=== PATIENT | female | born 1985 | race Caucasian/White ===

== ENCOUNTER 2021-03-11 14:43 | Inpatient (IN) ==
[2021-03-11 14:52] VITALS: BMI 21.6
--- NOTE | 2021-03-11 15:52 | DR.GENAD ---
HPI Time Seen Time Seen by Provider: 03/11/21 15:24 PCP Primary Care Physician: ION LANIER HPI Comment HPI Comment: Patient presents to ED due to abnormal labs. Saw her PCP a few days ago and was called today with a Hgb of 4.2 and instructions to come to the ED. Notes that she has been tired lately. Has had similar sx in the past and saw Heme-Oncology, but no diagnosis given. Denies any heavy menstrual bleeding, although she notes thst cycles are irregular nowadays. No GI bleeding. Complaint/Symptoms Chief Complaint:: PT HAD FOLLOW UP WITH PCP YESTERDAY AND GOT A CALL TODAY SAYING THAT HER HGB IS 4.2. DENIES BLEEDING. PT C/O FATIGUE, BILATERAL LOWER EXTREMITY SWELLING AND DIZZINESS. Self Treatment fo Chief Complaint: PT HAS SEEN HEMATOLOGY IN THE PAST FOR THIS ISSUE Source History Provided: Patient Mode of Arrival Mode of Arrival: Ambulatory Timing Onset of Chief Complaint: 03/11/21 PMH PMH Past Medical History: Yes Past Medical History: Anemia Past Surgical History: Yes Surgical History: No History Past Surgical History Comment: WISDOM TEETH REMOVED Family History History of Family Medical Conditions: Yes Family Medical History: [facility], Coronary Artery Disease and Hypertension Family Medical History Comment: LEUKEMIA Social History Does patient currently use any type of tobacco product: Yes Have you used tobacco products in the last 12 months: Yes Type of Tobacco Use: Cigarettes Does any household member use tobacco: No Alcohol Use: None Do you use any recreational Drugs:: No Lives With: Family Lives Where: Home Infectious screening In the last 2 months have you had wt loss of >10#?: NO Have you had fever, night sweats or hemotysis?: No Have you traveled outside the country in the last 6 months?: No Isolation: Standard ROS Review of Systems Constitutional: See HPI and Fatigue Hematologic/Lymphatic: See HPI and Anemia All Other Systems: Reviewed and Negative PE Vital Signs Vitals: Temperature 97.9 F Pulse Rate 101 Respiratory Rate 18 Blood Pressure [Left Arm] 121/57 Blood Pressure 121/58 O2 Sat by Pulse Oximetry 100 General Limitations: No Limitations General Appearance: Alert and In No Apparent Distress Head Head Exam: Normal Inspection, Atraumatic and Normocephalic Eyes Eye exam: Normal Appearance and Other (pale conjunctiva) ENT ENT Exam: Normal Exam Neck Neck Exam: Normal Inspection and Trachea Midline Chest Chest Inspection: Normal Inspection and Symmetric Chest Wall Rise Respiratory Respiratory Exam: Normal Lung Sounds Bilat Respiratory Exam: Bilateral: Clear to Auscultation Cardiovascular Cardiovascular Exam: Regular Rate, Normal Rhythm and Normal Heart Sounds Abdominal Exam Abdominal Exam: Normal Inspection, Normal Bowel Sounds and Soft Extremities Extremities Exam: Normal Inspection COURSE Consultation Consultation Comments: Spoke with Dr. Jackson who accepts patient for admission. ROR Labs Reviewed Laboratory Results Reviewed?: Yes Result Diagrams: 03/11/21 15:40 Laboratory: WBC 8.3 X10^3/uL (3.6-10.0) 03/11/21 15:40 RBC 2.24 X10^6/uL (3.5-5.4) L 03/11/21 15:40 Hgb 4.0 g/dL (12.0-16.0) L* 03/11/21 15:40 Hct 13.6 % (36.0-47.0) L* 03/11/21 15:40 MCV 61.0 fL (80.0-100.0) L 03/11/21 15:40 MCH 17.8 pg (27.0-34.0) L 03/11/21 15:40 MCHC 29.2 g/dL (33.0-35.0) L 03/11/21 15:40 RDW 25.8 % (11.6-16.5) H 03/11/21 15:40 Plt Count 248 X10^3/uL (150.0-450.0) 03/11/21 15:40 Plt Count Comment Adequate (ADEQUATE) 03/11/21 15:40 MPV 8.2 fL (7.4-11.0) 03/11/21 15:40 Neut % (Auto) 66.5 % (42.0-75.0) 03/11/21 15:40 Lymph % (Auto) 25.9 % (21.0-51.0) 03/11/21 15:40 [place] % (Auto) 4.9 % (0.0-13.0) 03/11/21 15:40 Eos % (Auto) 1.8 % (0.9-2.9) 03/11/21 15:40 Baso % (Auto) 0.9 % (0.2-1.0) 03/11/21 15:40 Neut # (Auto) 5.5 x10^3/uL (2.2-4.8) H 03/11/21 15:40 Lymph # (Auto) 2.2 X10^3/uL (1.3-2.9) 03/11/21 15:40 [place] # (Auto) 0.4 x10^3/uL (0.3-0.8) 03/11/21 15:40 Eos # (Auto) 0.1 x10^3/uL (0.0-0.2) 03/11/21 15:40 Baso # (Auto) 0.1 X10^3/uL (0.0-0.1) 03/11/21 15:40 Absolute Nucleated RBC 0.1 /100WBC 03/11/21 15:40 Plt Morphology Comment Normal (NORMAL) 03/11/21 15:40 RBC Morphology Abnormal (NORMAL) A 03/11/21 15:40 Hypochromasia 3+ A 03/11/21 15:40 Poikilocytosis Slight A 03/11/21 15:40 Anisocytosis 3+ A 03/11/21 15:40 Microcytosis 2+ A 03/11/21 15:40 Tear Drop Cells Slight A 03/11/21 15:40 Ovalocytes Slight A 03/11/21 15:40 Opioid Opioid Risk Tool Age (David box if 16-45): Yes History of Preadolescent Sexual Abuse: No Total: 1 Total Score Risk Category: Low Risk Copyright: Bhavesh VIDAL predicting aberrant behaviors Diagnosis Discharge Problem: Anemia Qualifiers: Anemia type: unspecified type Qualified Code(s): D64.9 - Anemia, unspecified
[2021-03-11 15:54] LABS: BASOPHILS # (AUTO) 0.1 X10^3/uL (0.0-0.1); BASOPHILS % (AUTO) 0.9 % (0.2-1.0); EOSINOPHILS # (AUTO) 0.1 x10^3/uL (0.0-0.2); EOSINOPHILS % (AUTO) 1.8 % (0.9-2.9); LYMPHOCYTES # (AUTO) 2.2 X10^3/uL (1.3-2.9); LYMPHOCYTES % (AUTO) 25.9 % (21.0-51.0); MEAN CORPUSCULAR HEMOGLOBIN 17.8 pg (27.0-34.0); MEAN CORPUSCULAR HGB CONC 29.2 g/dL (33.0-35.0); MEAN PLATELET VOLUME 8.2 fL (7.4-11.0); MONOCYTES # (AUTO) 0.4 x10^3/uL (0.3-0.8); MONOCYTES % (AUTO) 4.9 % (0.0-13.0); NEUTROPHILS # (AUTO) 5.5 x10^3/uL (2.2-4.8); NEUTROPHILS % (AUTO) 66.5 % (42.0-75.0); PLATELET COUNT 248 X10^3/uL (150.0-450.0); RED BLOOD COUNT 2.24 X10^6/uL (3.5-5.4); RED CELL DISTRIBUTION WIDTH 25.8 % (11.6-16.5); WHITE BLOOD COUNT 8.3 X10^3/uL (3.6-10.0)
[2021-03-11 16:19] LABS: ANISOCYTOSIS 3+; HYPOCHROMASIA 3+; MICROCYTOSIS 2+; PLATELET MORPHOLOGY COMMENT NORMAL (NORMAL)
[2021-03-11 16:21] LABS: OVALOCYTES SLIGHT; POIKILOCYTOSIS SLIGHT; TEAR DROP CELLS SLIGHT
[2021-03-11] MEDS ORDERED: TYLENOL SUPP 650 MG PR PRN (17:00)
[2021-03-11] MEDS ORDERED: BENADRYL INJ 50 MG VIAL IVP PRN (17:00)
[2021-03-11] MEDS ORDERED: NS 500 ML IV 500 ML IV ONE (17:00)
[2021-03-11 17:16] LABS: HEMATOCRIT 13.6 % (36.0-47.0)
[2021-03-11] MEDS: NS 1000 ML 1,000 ML IV SCH (22:49)
[2021-03-12] MEDS: NICOTINE PATCH TD SCH ×2 (00:08→09:20)
[2021-03-12] MEDS: PEPCID 20 MG IV PREMIX* 20 MG/50 ML BAG IV SCH ×3 (01:00→21:26)
[2021-03-12] MEDS: NS 1000 ML 1,000 ML IV SCH ×3 (01:00→17:37)
[2021-03-12] MEDS: PROTONIX INJ 40 MG VIAL IVP SCH ×3 (01:00→21:26)
[2021-03-12 03:42] LABS: BASOPHILS # (AUTO) 0.1 X10^3/uL (0.0-0.1); BASOPHILS % (AUTO) 1.8 % (0.2-1.0); EOSINOPHILS # (AUTO) 0.2 x10^3/uL (0.0-0.2); EOSINOPHILS % (AUTO) 2.6 % (0.9-2.9); LYMPHOCYTES # (AUTO) 2.5 X10^3/uL (1.3-2.9); MEAN CORPUSCULAR HEMOGLOBIN 21.4 pg (27.0-34.0); MEAN CORPUSCULAR HGB CONC 31.5 g/dL (33.0-35.0); MEAN PLATELET VOLUME 8.8 fL (7.4-11.0); MONOCYTES # (AUTO) 0.4 x10^3/uL (0.3-0.8); MONOCYTES % (AUTO) 5.8 % (0.0-13.0); NEUTROPHILS # (AUTO) 3.4 x10^3/uL (2.2-4.8); NEUTROPHILS % (AUTO) 51.8 % (42.0-75.0); PLATELET COUNT 227 X10^3/uL (150.0-450.0); RED BLOOD COUNT 2.83 X10^6/uL (3.5-5.4); RED CELL DISTRIBUTION WIDTH 30.1 % (11.6-16.5); WHITE BLOOD COUNT 6.6 X10^3/uL (3.6-10.0)
[2021-03-12 03:46] LABS: HEMATOCRIT 19.2 % (36.0-47.0); HEMOGLOBIN 6.1 g/dL (12.0-16.0)
[2021-03-12 04:26] LABS: ALANINE AMINOTRANSFERASE 13 Units/L (12-78); ALBUMIN 2.5 g/dL (3.4-5.0); ALKALINE PHOSPHATASE 119 Units/L (46-116); ASPARTATE AMINO TRANSFERASE 25 Units/L (15-37); BLOOD UREA NITROGEN 6 mg/dL (7-18); CALCIUM 8.1 mg/dL (8.5-10.1); CARBON DIOXIDE 29.5 mmol/L (21-32); CHLORIDE 109 mmol/L (98-107); COR CA(FOR HYPOALB) 9.3 mg/dL (8.5-10.1); SODIUM 145 mmol/L (136-145); TOTAL PROTEIN 5.7 g/dL (6.4-8.2); eGFR NON BLACK RACES > 60 (>60)
[2021-03-12 04:37] LABS: HYPOCHROMASIA 2+; PLATELET MORPHOLOGY COMMENT NORMAL (NORMAL)
[2021-03-12 04:38] LABS: ANISOCYTOSIS 3+; MICROCYTOSIS 1+
[2021-03-12] MEDS ORDERED: PROCRIT or EPOGEN VIAL 10,000 UNITS SC ONE (09:30)
[2021-03-12 09:47] LABS: HEMATOCRIT 19.6 % (36.0-47.0)
[2021-03-12] MEDS: HEMOCYTE-PLUS PO SCH (10:25)
--- NOTE | 2021-03-12 10:46 | DR.H&P ---
H&P - History & Physical for Day of: H&P Date: 03/11/21 - Chief Complaint Chief Complaint: WEAKNESS, DIZZINESS, FATIGUE, BLE SWELLING - History of Present Illness History of Present Illness: IS A 35 YEAR OLD WHITE FEMALE WHO IS A PATIEN T OF [facility]. SHE PRESENTED TO THE EMERGENCY DEPARTMENT WITH COMPLAINTS OF DIZZINESS, FATIGUE, BLE SWELLING. SHE REPORTS THAT HER HAD OUTPATIENT LABS DONE TWO DAYS AGO. HER PCP CALLED HER AND TOLD HER THAT HER HGB WAS 4.2 AND INSTRUCTED HER TO COME TO THE ED FOR FURTHER EVALUATION AND TREATMENT. PATIENT REPORTS SIMILAR SX IN THE PAST. SHE HAS SEEN HEMATOLOGY/ONCOLOGY, BUT WAS NEVER GIVEN A DIAGNOSIS. SHE ADMITS TO IRREGULAR PERIODS, BUT NOT HEAVY BLEEDING. SHE DENIES DARK, TARRY STOOLS OR VISIBLE BLOOD IN STOOLS. HER ONLY PMH IS ANEMIA. ON ARRIVAL TO THE ED, VITALS WERE 97.5-281-16-100%-121/58. LABS WERE OBTAINED. ABNORMAL LAB VALUES INCLUDE THE FOLLOWING: WBC 8.3, RBC 2.24, HGB 4.0, HCT 13.6, CHLORIDE 109, BUN 6, CALCIUM 8.1, IRON 25, FERRITIN 7, ALK PHOS 119, TOTAL PROTEIN 5.7, ALBUMIN 2.5, FOLATE 3.2. COVID-19 NEGATIVE. PATIENT WAS ADMITTED TO THE HOSPTIAL FOR FURTHER EVALUATION AND TREATMENT OF SEVERE ANEMIA. SHE WAS GIVEN TWO UNITS OF PRBC FOLLOWING ADMISSION. HGB THIS MORNING IS 6.0. WE WILL ORDER TWO ADDITIONAL UNITS OF PRBC. WE WILL ONLY TRANSFUSE 1 UNIT FOR NOW. SHE WAS STARTED ON NORMAL SALINE AT 125 ML/HR, PEPCID 20MG IV Q12H, PROTONIX 40MG IV BID, HEMOCYTE PLUS 1 TABLET PO DAILY, PROCRIT 5,000 UNITS SC X 1 DOSE, NICOTINE PATCH DAILY. WE WILL OBTAIN A PELVIC ULTRASOUND TODAY. OTHERWISE, WE PLAN TO FOLLOW UP WITH AM LABS AND CONTINUE TO MONITOR. TIME SPENT ON CLINICAL ASSESSMENT, REVIEWING LABS AND IMAGING, DECISION MAKING, AND DOCUMENTATION GREATER THAN 75 MINUTES. - Past Medical History Past Medical History: Anemia - Past Surgical History Surgical History: No History - Family History Family Medical History: Diabetes Mellitus, Cancer, [place], Hypertension - Social History Does patient currently use any type of tobacco product: Yes Have you used tobacco products in the last 12 months: Yes Type of Tobacco Use: Cigarettes Does any household member use tobacco: Yes Alcohol Use: None Drug Use: None - Medications Home Medications: No Known Drug Allergies Allergy (Verified 06/10/20 09:57) CONTINUE taking the following medications buspirone 15 mg PO BID 03/11/21 [History] clonazepam 0.5 mg PO BID PRN 03/11/21 [History] omeprazole 40 mg PO DAILYAC 03/11/21 [History] - Review of Systems Constitutional: Weakness, Malaise Eyes: No Symptoms Reported ENT: No Symptoms Reported Respiratory: No Symptoms Reported Cardiovascular: Edema (BLE ), Light Headedness Gastrointestinal: No Symptoms Reported Genitourinary: No Symptoms Reported Musculoskeletal: No Symptoms Reported Skin: No Symptoms Reported Neurological: Weakness - Physical Exam Vital Signs: Temperature 98.2 F Pulse Rate 55 Respiratory Rate 16 Blood Pressure [Left Arm] 121/57 Blood Pressure 101/56 O2 Sat by Pulse Oximetry 98 Oriented: Normal Eyes: Normal Ear: Normal Nose: Normal Throat: Normal Respiratory: Diminished Throughout Cardiovascular: Edema (BLE TRACE EDEMA ) : Normal Auscultation: Bowel Sounds: Normal Palpation: Normal Tenderness: Normal Skin: Normal Musculoskeletal: Normal Psychiatric: Normal Mood Description: Calm Affect: Normal Speech Pattern: Clear - Assessment/Plan (1) Symptomatic anemia Status: Acute Plan: ADMIT, TRANSFUSE PRBC, NORMAL SALINE AT 125 ML/HR, PEPCID 20MG IV Q12H, PROTONIX 40MG IV BID, HEMOCYTE PLUS 1 TABLET PO DAILY, PROCRIT 5,000 UNITS SC X 1 DOSE, NICOTINE PATCH DAILY. OBTAIN PELVIC ULTRASOUND - Allergies Allergies/Adverse Reactions: Allergies Allergy/AdvReac Type Severity Reaction Status Date / Time No Known Drug Allergies Allergy Verified 06/10/20 09:57
[2021-03-12] MEDS ORDERED: TYLENOL 325 MG TAB PO ONE ×2 (14:10→14:26)
[2021-03-12 17:55] LABS: HEMATOCRIT 23.8 % (36.0-47.0)
[2021-03-12 17:57] LABS: HEMOGLOBIN 7.5 g/dL (12.0-16.0)
[2021-03-12 21:16] LABS: HEMATOCRIT 23.4 % (36.0-47.0); HEMOGLOBIN 7.5 g/dL (12.0-16.0)
[2021-03-13 05:13] LABS: BASOPHILS # (AUTO) 0.1 X10^3/uL (0.0-0.1); BASOPHILS % (AUTO) 1.3 % (0.2-1.0); EOSINOPHILS # (AUTO) 0.1 x10^3/uL (0.0-0.2); EOSINOPHILS % (AUTO) 1.7 % (0.9-2.9); HEMATOCRIT 23.5 % (36.0-47.0); HEMOGLOBIN 7.6 g/dL (12.0-16.0); LYMPHOCYTES # (AUTO) 2.1 X10^3/uL (1.3-2.9); LYMPHOCYTES % (AUTO) 28.5 % (21.0-51.0); MEAN CORPUSCULAR HEMOGLOBIN 22.8 pg (27.0-34.0); MEAN CORPUSCULAR HGB CONC 32.5 g/dL (33.0-35.0); MEAN CORPUSCULAR VOLUME 70.1 fL (80.0-100.0); MEAN PLATELET VOLUME 8.6 fL (7.4-11.0); MONOCYTES # (AUTO) 0.4 x10^3/uL (0.3-0.8); NEUTROPHILS # (AUTO) 4.6 x10^3/uL (2.2-4.8); NEUTROPHILS % (AUTO) 63.5 % (42.0-75.0); PLATELET COUNT 220 X10^3/uL (150.0-450.0); RED BLOOD COUNT 3.35 X10^6/uL (3.5-5.4); RED CELL DISTRIBUTION WIDTH 29.2 % (11.6-16.5); WHITE BLOOD COUNT 7.3 X10^3/uL (3.6-10.0)
[2021-03-13 05:28] LABS: ALANINE AMINOTRANSFERASE 51 Units/L (12-78); ALBUMIN 2.6 g/dL (3.4-5.0); ALKALINE PHOSPHATASE 196 Units/L (46-116); ASPARTATE AMINO TRANSFERASE 129 Units/L (15-37); BLOOD UREA NITROGEN 4 mg/dL (7-18); CALCIUM 8.3 mg/dL (8.5-10.1); CARBON DIOXIDE 26.9 mmol/L (21-32); CHLORIDE 111 mmol/L (98-107); COR CA(FOR HYPOALB) 9.4 mg/dL (8.5-10.1); CREATININE 0.58 mg/dL (0.55-1.02); SODIUM 146 mmol/L (136-145); eGFR NON BLACK RACES > 60 (>60)
[2021-03-13 06:27] LABS: ANISOCYTOSIS 3+; HYPOCHROMASIA 1+; PLATELET MORPHOLOGY COMMENT NORMAL (NORMAL)
[2021-03-13 06:28] LABS: MICROCYTOSIS SLIGHT
[2021-03-13] MEDS: NS 1000 ML 1,000 ML IV SCH ×4 (08:16→18:56)
[2021-03-13] MEDS: PROTONIX INJ 40 MG VIAL IVP SCH ×2 (09:47→20:15)
[2021-03-13] MEDS: HEMOCYTE-PLUS PO SCH (09:47)
[2021-03-13] MEDS: PEPCID 20 MG IV PREMIX* 20 MG/50 ML BAG IV SCH ×2 (09:47→20:15)
[2021-03-13] MEDS: NICOTINE PATCH TD SCH (09:47)
[2021-03-13] MEDS ORDERED: SUBOXONE TAB SL PRN (19:00)
[2021-03-13] MEDS ORDERED: KLONOPIN TAB 0.5 MG PO PRN (19:00)
--- NOTE | 2021-03-13 19:00 | PCM.PROG ---
Progress Note - Progress Note for Day of Date of Exam: 03/13/21 - Subjective Subjective: IS BEING TREATED FOR SEVERE ANEMIA. ON ADMISSION, HER HGB WAS 4.0. SINCE ADMISSION, SHE HAS RECEIVED THREE UNITS OF PACKED RED BLOOD CELLS. TODAY, SHE IS LYING IN BED WITH EYES CLOSED ON MORNING ROUNDS. SHE DOES AWAKEN TO VERBAL STIMU AND ANSWER QUESTIONS APPROPRIATELY. SHE ADMITS TO GENERALIZED WEAKNESS. ON EXAMINATION, HEART IS REGULAR IN RATE AND RHYTHM. BILATERAL LUNGS ARE CLEAR TO AUSCULTATION. ABDOMEN IS FLAT, SOFT, AND NON-TENDER WITH NORMAL BOWEL SOUNDS NOTED IN ALL QUADRANTS. HER VITALS THIS MORNING ARE: 98.3-64-19-100%-108/68. LABS WERE OBTAINED. ABNORMAL LAB VALUES INCLUDE THE FOLLOWING: RBC 3.35, HGB 7.6, HCT 23.5, SODIUM 146, CHLORIDE 111, BUN 4, CALCIUM 8.3, TOTAL BILI 0.10, AST 129, ALK PHOS 196, TOTAL PROTEIN 6.0, ALBUMIN 2.6. STOOLS ARE POSITIVE FOR OCCULT BLOOD. SHE IS CURRENTLY RECEIVING: NORMAL SALINE AT 125 ML/HR, PEPCID 20MG IV Q12H, PROTONIX 40MG IV BID, HEMOCYTE PLUS 1 TABLET PO DAILY, NICOTINE PATCH DAILY. WE WILL OBTAIN A PELVIC ULTRASOUND TOMORROW MORNING. WE WILL ALSO ORDER HEMOGLOBIN ELECTROPHORESIS TEST. WE WILL RESUME HER HOME MEDICATIONS TODAY. OTHERWISE, WE PLAN TO FOLLOW UP WITH AM LABS AND CONTINUE TO MONITOR. TIME SPENT ON CLINICAL ASSESSMENT, REVIEWING LABS AND IMAGING, DECISION MAKING, AND DOCUMENTATION WAS GREATER THAN 45 MINUTES. - Past Medical Family Social History Past Med/Fam/Surg Hx: No changes since H&P Allergies: Allergies No Known Drug Allergies Allergy (Verified 06/10/20 09:57) - Review of Systems ROS: No change since H&P - Vital Signs and I&O's Vital Signs: Temperature 98.0 F Pulse Rate 70 Respiratory Rate 33 Blood Pressure [Left Arm] 121/57 Blood Pressure 118/71 O2 Sat by Pulse Oximetry 100 Intake and Output: Intake & Output 03/11/21 03/12/21 03/13/21 03/14/21 11:59 11:59 11:59 11:59 Intake Total 1905 / 1905 4644 / 4644 1979 Balance 1905 / 1905 4644 / 4644 1979 - Physical Exam Oriented: Normal Eyes: Normal Ear: Normal Nose: Normal Throat: Normal Respiratory: Normal Cardiovascular: Normal : Normal Auscultation: Bowel Sounds: Normal Palpation: Normal Tenderness: Normal Skin: Normal Musculoskeletal: Normal Psychiatric: Normal Mood Description: Calm Affect: Normal Speech Pattern: Clear, Appropriate - Laboratory and Diagnostics Result Diagrams: 03/13/21 04:15 03/13/21 04:15 Labs: Laboratory WBC 7.3 X10^3/uL (3.6-10.0) 03/13/21 04:15 RBC 3.35 X10^6/uL (3.5-5.4) L 03/13/21 04:15 Hgb 7.6 g/dL (12.0-16.0) L 03/13/21 04:15 Hct 23.5 % (36.0-47.0) L 03/13/21 04:15 MCV 70.1 fL (80.0-100.0) L 03/13/21 04:15 MCH 22.8 pg (27.0-34.0) L 03/13/21 04:15 MCHC 32.5 g/dL (33.0-35.0) L 03/13/21 04:15 RDW 29.2 % (11.6-16.5) H 03/13/21 04:15 Plt Count 220 X10^3/uL (150.0-450.0) 03/13/21 04:15 Plt Count Comment Adequate (ADEQUATE) 03/13/21 04:15 MPV 8.6 fL (7.4-11.0) 03/13/21 04:15 Neut % (Auto) 63.5 % (42.0-75.0) 03/13/21 04:15 Lymph % (Auto) 28.5 % (21.0-51.0) 03/13/21 04:15 [place] % (Auto) 5.0 % (0.0-13.0) 03/13/21 04:15 Eos % (Auto) 1.7 % (0.9-2.9) 03/13/21 04:15 Baso % (Auto) 1.3 % (0.2-1.0) H 03/13/21 04:15 Neut # (Auto) 4.6 x10^3/uL (2.2-4.8) 03/13/21 04:15 Lymph # (Auto) 2.1 X10^3/uL (1.3-2.9) 03/13/21 04:15 [place] # (Auto) 0.4 x10^3/uL (0.3-0.8) 03/13/21 04:15 Eos # (Auto) 0.1 x10^3/uL (0.0-0.2) 03/13/21 04:15 Baso # (Auto) 0.1 X10^3/uL (0.0-0.1) 03/13/21 04:15 Absolute Nucleated RBC 0.1 /100WBC 03/13/21 04:15 Plt Morphology Comment Normal (NORMAL) 03/13/21 04:15 RBC Morphology Abnormal (NORMAL) A 03/13/21 04:15 Dimorphic RBCs 1+ 03/13/21 04:15 Hypochromasia 1+ A 03/13/21 04:15 Poikilocytosis Slight A 03/11/21 15:40 Anisocytosis 3+ A 03/13/21 04:15 Microcytosis Slight A 03/13/21 04:15 Macrocytosis 1+ A 03/13/21 04:15 Tear Drop Cells Slight A 03/11/21 15:40 Ovalocytes Slight A 03/11/21 15:40 Sodium 146 mmol/L (136-145) H 03/13/21 04:15 Corrected Sodium TNP 03/13/21 04:15 Potassium 4.0 mmol/L (3.5-5.1) 03/13/21 04:15 Chloride 111 mmol/L (98-107) H 03/13/21 04:15 Carbon Dioxide 26.9 mmol/L (21-32) 03/13/21 04:15 BUN 4 mg/dL (7-18) L 03/13/21 04:15 Creatinine 0.58 mg/dL (0.55-1.02) 03/13/21 04:15 Est GFR (MDRD) Af Amer > 60 (>60) 03/13/21 04:15 Est GFR (MDRD) Non-Af > 60 (>60) 03/13/21 04:15 Glucose 83 mg/dL (65-99) 03/13/21 04:15 Calcium 8.3 mg/dL (8.5-10.1) L 03/13/21 04:15 Corrected Calcium 9.4 mg/dL (8.5-10.1) 03/13/21 04:15 Iron 25 ug/dL (50-175) L 03/12/21 02:41 Transferrin 280 mg/dL (202-364) 03/12/21 02:41 Ferritin 7 ng/mL (8-252) L 03/12/21 02:41 Total Bilirubin 0.10 mg/dL (0.2-1.0) L 03/13/21 04:15 AST 129 Units/L (15-37) H 03/13/21 04:15 ALT 51 Units/L (12-78) 03/13/21 04:15 Alkaline Phosphatase 196 Units/L (46-116) H 03/13/21 04:15 Total Protein 6.0 g/dL (6.4-8.2) L 03/13/21 04:15 Albumin 2.6 g/dL (3.4-5.0) L 03/13/21 04:15 Globulin 3.4 g/dL (2.5-4.5) 03/13/21 04:15 Albumin/Globulin Ratio 0.8 Ratio (1.1-2.1) L 03/13/21 04:15 Vitamin B12 803 pg/mL (193-986) 03/12/21 02:41 Folate 3.2 ng/mL (>8.6) L 03/12/21 02:41 Stool Description 100g solid brown 03/13/21 00:49 Stl Occult Blood (IFOB) Positive (NEGATIVE) A 03/13/21 00:49 Urine Opiates Screen Negative (NEG=<300) 03/13/21 17:05 Urine Methadone Screen Negative (NEG=<300) 03/13/21 17:05 Ur Barbiturates Screen Negative (NEG=<200) 03/13/21 17:05 Ur Phencyclidine Scrn Negative (NEG=<25) 03/13/21 17:05 Ur Amphetamines Screen Negative (NEG=<1000) 03/13/21 17:05 U Benzodiazepines Scrn Negative (NEG=<200) 03/13/21 17:05 Urine Cocaine Screen Negative (NEG=<300) 03/13/21 17:05 U Marijuana (THC) Screen Negative (NEG=<50) 03/13/21 17:05 SARS CoV-2 RNA Rapid ROLANDO Negative (NEGATIVE) 03/11/21 16:56 Blood Type O POSITIVE 03/11/21 15:40 Antibody Screen Negative 03/11/21 15:40 Crossmatch See Detail 03/11/21 15:40 - Plan (1) Symptomatic anemia Status: Acute Plan: NORMAL SALINE AT 125 ML/HR, PEPCID 20MG IV Q12H, PROTONIX 40MG IV BID, HEMOCYTE PLUS 1 TABLET PO DAILY, NICOTINE PATCH DAILY. OBTAIN PELVIC ULTRASOUND
[2021-03-13] MEDS: BUSPAR PO SCH (20:15)
[2021-03-14] MEDS: NS 1000 ML 1,000 ML IV SCH ×4 (03:03→19:15)
[2021-03-14 05:08] LABS: BASOPHILS # (AUTO) 0.1 X10^3/uL (0.0-0.1); BASOPHILS % (AUTO) 1.3 % (0.2-1.0); EOSINOPHILS # (AUTO) 0.2 x10^3/uL (0.0-0.2); EOSINOPHILS % (AUTO) 2.4 % (0.9-2.9); HEMOGLOBIN 7.6 g/dL (12.0-16.0); LYMPHOCYTES # (AUTO) 2.6 X10^3/uL (1.3-2.9); LYMPHOCYTES % (AUTO) 28.4 % (21.0-51.0); MEAN CORPUSCULAR HEMOGLOBIN 22.4 pg (27.0-34.0); MEAN CORPUSCULAR HGB CONC 31.7 g/dL (33.0-35.0); MEAN CORPUSCULAR VOLUME 70.6 fL (80.0-100.0); MEAN PLATELET VOLUME 8.8 fL (7.4-11.0); MONOCYTES # (AUTO) 0.5 x10^3/uL (0.3-0.8); MONOCYTES % (AUTO) 5.3 % (0.0-13.0); NEUTROPHILS # (AUTO) 5.7 x10^3/uL (2.2-4.8); NEUTROPHILS % (AUTO) 62.6 % (42.0-75.0); PLATELET COUNT 240 X10^3/uL (150.0-450.0); WHITE BLOOD COUNT 9.2 X10^3/uL (3.6-10.0)
[2021-03-14 05:29] LABS: ALANINE AMINOTRANSFERASE 33 Units/L (12-78); ALBUMIN 2.4 g/dL (3.4-5.0); ALKALINE PHOSPHATASE 178 Units/L (46-116); ASPARTATE AMINO TRANSFERASE 52 Units/L (15-37); BLOOD UREA NITROGEN 4 mg/dL (7-18); CALCIUM 8.4 mg/dL (8.5-10.1); CARBON DIOXIDE 29.9 mmol/L (21-32); CHLORIDE 112 mmol/L (98-107); COR CA(FOR HYPOALB) 9.7 mg/dL (8.5-10.1); CREATININE 0.56 mg/dL (0.55-1.02); SODIUM 148 mmol/L (136-145); TOTAL PROTEIN 5.6 g/dL (6.4-8.2); eGFR NON BLACK RACES > 60 (>60)
[2021-03-14 06:10] LABS: ANISOCYTOSIS 3+; HYPOCHROMASIA 2+; PLATELET MORPHOLOGY COMMENT NORMAL (NORMAL)
[2021-03-14] MEDS: NICOTINE PATCH TD SCH (08:33)
[2021-03-14] MEDS: PROTONIX INJ 40 MG VIAL IVP SCH ×2 (08:34→20:30)
[2021-03-14] MEDS: HEMOCYTE-PLUS PO SCH (08:34)
[2021-03-14] MEDS: BUSPAR PO SCH ×2 (08:34→20:29)
[2021-03-14] MEDS: PEPCID 20 MG IV PREMIX* 20 MG/50 ML BAG IV SCH ×2 (08:35→20:28)
--- NOTE | 2021-03-14 10:21 | PCM.PROG ---
Progress Note - Progress Note for Day of Date of Exam: 03/14/21 - Subjective Subjective: IS BEING TREATED FOR SEVERE ANEMIA. ON ADMISSION, HER HGB WAS 4.0. SINCE ADMISSION, SHE HAS RECEIVED THREE UNITS OF PACKED RED BLOOD CELLS. TODAY, SHE IS LYING IN BED WITH EYES CLOSED ON MORNING ROUNDS. SHE DOES AWAKEN TO VERBAL STIMU AND ANSWER QUESTIONS APPROPRIATELY. SHE ADMITS TO GENERALIZED WEAKNESS AND ABDOMINAL CRAMPING. ON EXAMINATION, HEART IS REGULAR IN RATE AND RHYTHM. BILATERAL LUNGS ARE CLEAR TO AUSCULTATION. ABDOMEN IS FLAT, SOFT, AND NON-TENDER WITH NORMAL BOWEL SOUNDS NOTED IN ALL QUADRANTS. HER VITALS THIS MORNING ARE: 97.8-60-21-100%-133/71. LABS WERE OBTAINED. ABNORMAL LAB VALUES INCLUDE THE FOLLOWING: RBC 3.40, HGB 7.6, HCT 24.0, SODIUM 148, CHLORIDE 112, BU N 4, CALCIUM 8.4, TOTAL BILI 0.10, AST 52, ALK PHOS 178, TOTAL PROTEIN 5.6, ALBUMIN 2.4. STOOLS ARE POSITIVE FOR OCCULT BLOOD. SHE IS CURRENTLY RECEIVING: NORMAL SALINE AT 125 ML/HR, PEPCID 20MG IV Q12H, PROTONIX 40MG IV BID, HEMOCYTE PLUS 1 TABLET PO DAILY, NICOTINE PATCH DAILY. HER HOEM MEDICATIONS OF SUBOXONE, BUSPAR, AND KLONOPIN WERE ALSO RESUMED. WE WILL OBTAIN A PELVIC ULTRASOUND THIS MORNING. WE WILL ALSO CONSULT WITH , GENERAL SURGEON FOR POSSIBLE COLONOSCOPY/EGD. OTHERWISE, WE PLAN TO FOLLOW UP WITH AM LABS AND CONTINUE TO MONITOR. TIME SPENT ON CLINICAL ASSESSMENT, REVIEWING LABS AND IMAGING, DECISION MAKING, AND DOCUMENTATION WAS GREATER THAN 45 MINUTES. - Past Medical Family Social History Past Med/Fam/Surg Hx: No changes since H&P Allergies: Allergies No Known Drug Allergies Allergy (Verified 06/10/20 09:57) - Review of Systems ROS: No change since H&P - Vital Signs and I&O's Vital Signs: Temperature 97.8 F Pulse Rate 63 Respiratory Rate 13 Blood Pressure [Left Arm] 121/57 Blood Pressure 119/68 O2 Sat by Pulse Oximetry 99 Intake and Output: Intake & Output 03/11/21 03/12/21 03/13/21 03/14/21 11:59 11:59 11:59 11:59 Intake Total 1905 / 1905 4644 / 4644 4580 / 4580 Balance 1904 4644 / 4644 4580 / 4580 - Physical Exam Oriented: Normal Eyes: Normal Ear: Normal Nose: Normal Throat: Normal Respiratory: Normal Cardiovascular: Normal : Normal Auscultation: Bowel Sounds: Normal Tenderness: Normal Skin: Normal Musculoskeletal: Normal Psychiatric: Normal Mood Description: Calm Affect: Normal Speech Pattern: Clear, Appropriate - Laboratory and Diagnostics Result Diagrams: 03/14/21 04:20 03/14/21 04:20 Labs: Laboratory WBC 9.2 X10^3/uL (3.6-10.0) 03/14/21 04:20 RBC 3.40 X10^6/uL (3.5-5.4) L 03/14/21 04:20 Hgb 7.6 g/dL (12.0-16.0) L 03/14/21 04:20 Hct 24.0 % (36.0-47.0) L 03/14/21 04:20 MCV 70.6 fL (80.0-100.0) L 03/14/21 04:20 MCH 22.4 pg (27.0-34.0) L 03/14/21 04:20 MCHC 31.7 g/dL (33.0-35.0) L 03/14/21 04:20 RDW 30.0 % (11.6-16.5) H 03/14/21 04:20 Plt Count 240 X10^3/uL (150.0-450.0) 03/14/21 04:20 Plt Count Comment Adequate (ADEQUATE) 03/14/21 04:20 MPV 8.8 fL (7.4-11.0) 03/14/21 04:20 Neut % (Auto) 62.6 % (42.0-75.0) 03/14/21 04:20 Lymph % (Auto) 28.4 % (21.0-51.0) 03/14/21 04:20 [place] % (Auto) 5.3 % (0.0-13.0) 03/14/21 04:20 Eos % (Auto) 2.4 % (0.9-2.9) 03/14/21 04:20 Baso % (Auto) 1.3 % (0.2-1.0) H 03/14/21 04:20 Neut # (Auto) 5.7 x10^3/uL (2.2-4.8) H 03/14/21 04:20 Lymph # (Auto) 2.6 X10^3/uL (1.3-2.9) 03/14/21 04:20 [place] # (Auto) 0.5 x10^3/uL (0.3-0.8) 03/14/21 04:20 Eos # (Auto) 0.2 x10^3/uL (0.0-0.2) 03/14/21 04:20 Baso # (Auto) 0.1 X10^3/uL (0.0-0.1) 03/14/21 04:20 Absolute Nucleated RBC 0.1 /100WBC 03/14/21 04:20 Plt Morphology Comment Normal (NORMAL) 03/14/21 04:20 RBC Morphology Abnormal (NORMAL) A 03/14/21 04:20 Dimorphic RBCs 2+ 03/14/21 04:20 Hypochromasia 2+ A 03/14/21 04:20 Poikilocytosis Slight A 03/11/21 15:40 Anisocytosis 3+ A 03/14/21 04:20 Microcytosis Slight A 03/13/21 04:15 Macrocytosis 1+ A 03/13/21 04:15 Tear Drop Cells Slight A 03/11/21 15:40 Ovalocytes Slight A 03/11/21 15:40 Sodium 148 mmol/L (136-145) H 03/14/21 04:20 Corrected Sodium TNP 03/14/21 04:20 Potassium 3.8 mmol/L (3.5-5.1) 03/14/21 04:20 Chloride 112 mmol/L (98-107) H 03/14/21 04:20 Carbon Dioxide 29.9 mmol/L (21-32) 03/14/21 04:20 BUN 4 mg/dL (7-18) L 03/14/21 04:20 Creatinine 0.56 mg/dL (0.55-1.02) 03/14/21 04:20 Est GFR (MDRD) Af Amer > 60 (>60) 03/14/21 04:20 Est GFR (MDRD) Non-Af > 60 (>60) 03/14/21 04:20 Glucose 84 mg/dL (65-99) 03/14/21 04:20 Calcium 8.4 mg/dL (8.5-10.1) L 03/14/21 04:20 Corrected Calcium 9.7 mg/dL (8.5-10.1) 03/14/21 04:20 Iron 25 ug/dL (50-175) L 03/12/21 02:41 Transferrin 280 mg/dL (202-364) 03/12/21 02:41 Ferritin 7 ng/mL (8-252) L 03/12/21 02:41 Total Bilirubin 0.10 mg/dL (0.2-1.0) L 03/14/21 04:20 AST 52 Units/L (15-37) H 03/14/21 04:20 ALT 33 Units/L (12-78) 03/14/21 04:20 Alkaline Phosphatase 178 Units/L (46-116) H 03/14/21 04:20 Total Protein 5.6 g/dL (6.4-8.2) L 03/14/21 04:20 Albumin 2.4 g/dL (3.4-5.0) L 03/14/21 04:20 Globulin 3.2 g/dL (2.5-4.5) 03/14/21 04:20 Albumin/Globulin Ratio 0.8 Ratio (1.1-2.1) L 03/14/21 04:20 Vitamin B12 803 pg/mL (193-986) 03/12/21 02:41 Folate 3.2 ng/mL (>8.6) L 03/12/21 02:41 Stool Description 100g solid brown 03/13/21 00:49 Stl Occult Blood (IFOB) Positive (NEGATIVE) A 03/13/21 00:49 Urine Opiates Screen Negative (NEG=<300) 03/13/21 17:05 Urine Methadone Screen Negative (NEG=<300) 03/13/21 17:05 Ur Barbiturates Screen Negative (NEG=<200) 03/13/21 17:05 Ur Phencyclidine Scrn Negative (NEG=<25) 03/13/21 17:05 Ur Amphetamines Screen Negative (NEG=<1000) 03/13/21 17:05 U Benzodiazepines Scrn Negative (NEG=<200) 03/13/21 17:05 Urine Cocaine Screen Negative (NEG=<300) 03/13/21 17:05 U Marijuana (THC) Screen Negative (NEG=<50) 03/13/21 17:05 SARS CoV-2 RNA Rapid ROLANDO Negative (NEGATIVE) 03/11/21 16:56 Blood Type O POSITIVE 03/11/21 15:40 Antibody Screen Negative 03/11/21 15:40 Crossmatch See Detail 03/11/21 15:40 - Plan (1) Symptomatic anemia Status: Acute Plan: NORMAL SALINE AT 125 ML/HR, PEPCID 20MG IV Q12H, PROTONIX 40MG IV BID, HEMOCYTE PLUS 1 TABLET PO DAILY, NICOTINE PATCH DAILY. OBTAIN PELVIC ULTRASOUND
--- NOTE | 2021-03-14 12:34 | US ---
HISTORYAnemiaSTUDYPelvic sonogramTechnique: Multiple grayscale sonographic images were obtained.COMPARISONNoneFINDINGSThe uterus measured 6 x 3.2 x 4.2 cm. Endometrial thickness was normal at 1.1 mm. The right ovary measured 5 x 1.8 x 2.7 cm and demonstrated a 2.2 cm simple cyst likely not clinically significant. There is normal blood flow to the right ovary. Left ovary measured 2.3 x 2.3 x 2.3 cm and appear normal and demonstrated normal blood flow. Trace fluid is present in the cul de sac likely physiologic.IMPRESSIONNo significant abnormality identifiedElectronically signed by: HERNESTO WADE (Mar 14, 2021 12:32:34)
[2021-03-14] MEDS: NULYTELY or GO-LYTELY PO SCH (12:35)
[2021-03-15] MEDS: NS 1000 ML 1,000 ML IV SCH ×5 (02:15→19:15)
[2021-03-15 06:04] LABS: BASOPHILS # (AUTO) 0.1 X10^3/uL (0.0-0.1); BASOPHILS % (AUTO) 1.1 % (0.2-1.0); EOSINOPHILS # (AUTO) 0.2 x10^3/uL (0.0-0.2); EOSINOPHILS % (AUTO) 2.2 % (0.9-2.9); HEMATOCRIT 25.3 % (36.0-47.0); LYMPHOCYTES # (AUTO) 2.1 X10^3/uL (1.3-2.9); LYMPHOCYTES % (AUTO) 22.3 % (21.0-51.0); MEAN CORPUSCULAR HEMOGLOBIN 22.8 pg (27.0-34.0); MEAN CORPUSCULAR HGB CONC 31.8 g/dL (33.0-35.0); MEAN CORPUSCULAR VOLUME 71.9 fL (80.0-100.0); MEAN PLATELET VOLUME 8.8 fL (7.4-11.0); MONOCYTES # (AUTO) 0.6 x10^3/uL (0.3-0.8); MONOCYTES % (AUTO) 6.3 % (0.0-13.0); NEUTROPHILS # (AUTO) 6.6 x10^3/uL (2.2-4.8); NEUTROPHILS % (AUTO) 68.1 % (42.0-75.0); PLATELET COUNT 259 X10^3/uL (150.0-450.0); RED BLOOD COUNT 3.51 X10^6/uL (3.5-5.4); RED CELL DISTRIBUTION WIDTH 30.5 % (11.6-16.5); WHITE BLOOD COUNT 9.6 X10^3/uL (3.6-10.0)
[2021-03-15 06:53] LABS: BAND NEUTROPHILS % 1 % (0-10); PLATELET MORPHOLOGY COMMENT NORMAL (NORMAL)
[2021-03-15 06:54] LABS: ANISOCYTOSIS 3+; MICROCYTOSIS 1+
[2021-03-15 06:55] LABS: ALANINE AMINOTRANSFERASE 30 Units/L (12-78); ALBUMIN 2.8 g/dL (3.4-5.0); ALKALINE PHOSPHATASE 182 Units/L (46-116); ASPARTATE AMINO TRANSFERASE 39 Units/L (15-37); BLOOD UREA NITROGEN 3 mg/dL (7-18); CALCIUM 8.6 mg/dL (8.5-10.1); CARBON DIOXIDE 28.4 mmol/L (21-32); CHLORIDE 109 mmol/L (98-107); COR CA(FOR HYPOALB) 9.6 mg/dL (8.5-10.1); CREATININE 0.52 mg/dL (0.55-1.02); HYPOCHROMASIA 3+; SODIUM 146 mmol/L (136-145); TOTAL PROTEIN 6.2 g/dL (6.4-8.2); eGFR NON BLACK RACES > 60 (>60)
[2021-03-15] MEDS: NICOTINE PATCH TD SCH (10:00)
[2021-03-15] MEDS: PEPCID 20 MG IV PREMIX* 20 MG/50 ML BAG IV SCH ×2 (10:00→20:28)
[2021-03-15] MEDS: PROTONIX INJ 40 MG VIAL IVP SCH ×2 (11:10→20:29)
[2021-03-15] MEDS ORDERED: DIPRIVAN VIAL 20 ML ONE ×2 (13:28→13:54)
[2021-03-15] MEDS ORDERED: DULCOLAX TAB EC 5 MG PO ONE (14:04)
[2021-03-15] MEDS ORDERED: CITROMA PO ONE (14:04)
[2021-03-15] MEDS: BUSPAR PO SCH ×2 (15:30→20:28)
[2021-03-15] MEDS: HEMOCYTE-PLUS PO SCH (15:30)
--- NOTE | 2021-03-15 16:22 | PCM.PROG ---
Progress Note - Progress Note for Day of Date of Exam: 03/15/21 - Subjective Subjective: IS BEING TREATED FOR SEVERE ANEMIA. ON ADMISSION, HER HGB WAS 4.0. SINCE ADMISSION, SHE HAS RECEIVED THREE UNITS OF PACKED RED BLOOD CELLS. TODAY, SHE IS LYING IN BED WITH EYES CLOSED ON MORNING ROUNDS. SHE DOES AWAKEN TO VERBAL STIMU AND ANSWER QUESTIONS APPROPRIATELY. SHE ADMITS TO GENERALIZED WEAKNESS AND ABDOMINAL CRAMPING. SLIGHT IMPROVEMENT IN SYMPTOMS SINCE ADMISSION. ON EXAMINATION, HEART IS REGULAR IN RATE AND RHYTHM. BILATERAL LUNGS ARE CLEAR TO AUSCULTATION. ABDOMEN IS FLAT, SOFT, AND NON-TENDER WITH NORMAL BOWEL SOUNDS NOTED IN ALL QUADRANTS. HER VITALS THIS MORNING ARE: 97.7-68-15-97%-115/61. LABS WERE OBTAINED. ABNORMAL LAB VALUES INCLUDE THE FOLLOWING: HGB 8.0, HCT 25.3, SODIUM 146, CHLORIDE 109, BUN 3, CREATININE 0.52, AST 39, ALK PHOS 182, TOTAL PROTEIN 6.2, ALBUMIN 2.8. STOOLS ARE POSITIVE FOR OCCULT BLOOD. SHE IS CURRENTLY RECEIVING: NORMAL SALINE AT 125 ML/HR, PEPCID 20MG IV Q12H, PROTONIX 40MG IV BID, HEMOCYTE PLUS 1 TABLET PO DAILY, NICOTINE PATCH DAILY. HER HOEM MEDICATIONS OF SUBOXONE, BUSPAR, AND KLONOPIN WERE ALSO RESUMED. WILL PERFORM COLONOSCOPY/EGD THIS MORNING. OTHERWISE, WE PLAN TO FOLLOW UP WITH AM LABS AND CONTINUE TO MONITOR. TIME SPENT ON CLINICAL ASSESSMENT, REVIEWING LABS AND IMAGING, DECISION MAKING, AND DOCUMENTATION WAS GREATER THAN 45 MINUTES. - Past Medical Family Social History Past Med/Fam/Surg Hx: No changes since H&P Allergies: Allergies No Known Drug Allergies Allergy (Verified 06/10/20 09:57) - Review of Systems ROS: No change since H&P - Vital Signs and I&O's Vital Signs: Temperature 98.0 F Pulse Rate 61 Respiratory Rate 13 Blood Pressure [Left Arm] 121/57 Blood Pressure 122/60 O2 Sat by Pulse Oximetry 97 Intake and Output: Intake & Output 03/13/21 03/14/21 03/15/21 03/16/21 11:59 11:59 11:59 11:59 Intake Total 4644 / 4644 4580 / 4580 7426 / 7426 200 / 200 Balance 4644 / 4644 4580 / 4580 7426 / 7426 200 / 200 - Physical Exam Oriented: Normal Eyes: Normal Ear: Normal Nose: Normal Throat: Normal Respiratory: Normal Cardiovascular: Normal : Normal Auscultation: Bowel Sounds: Normal Palpation: Normal Tenderness: Normal Skin: Normal Musculoskeletal: Normal Psychiatric: Normal Mood Description: Calm Affect: Normal Speech Pattern: Clear, Appropriate - Laboratory and Diagnostics Result Diagrams: 03/15/21 04:55 03/15/21 04:55 Labs: Laboratory WBC 9.6 X10^3/uL (3.6-10.0) 03/15/21 04:55 RBC 3.51 X10^6/uL (3.5-5.4) 03/15/21 04:55 Hgb 8.0 g/dL (12.0-16.0) L 03/15/21 04:55 Hct 25.3 % (36.0-47.0) L 03/15/21 04:55 MCV 71.9 fL (80.0-100.0) L 03/15/21 04:55 MCH 22.8 pg (27.0-34.0) L 03/15/21 04:55 MCHC 31.8 g/dL (33.0-35.0) L 03/15/21 04:55 RDW 30.5 % (11.6-16.5) H 03/15/21 04:55 Plt Count 259 X10^3/uL (150.0-450.0) 03/15/21 04:55 Plt Count Comment Adequate (ADEQUATE) 03/15/21 04:55 MPV 8.8 fL (7.4-11.0) 03/15/21 04:55 Neut % (Auto) 68.1 % (42.0-75.0) 03/15/21 04:55 Lymph % (Auto) 22.3 % (21.0-51.0) 03/15/21 04:55 [place] % (Auto) 6.3 % (0.0-13.0) 03/15/21 04:55 Eos % (Auto) 2.2 % (0.9-2.9) 03/15/21 04:55 Baso % (Auto) 1.1 % (0.2-1.0) H 03/15/21 04:55 Neut # (Auto) 6.6 x10^3/uL (2.2-4.8) H 03/15/21 04:55 Lymph # (Auto) 2.1 X10^3/uL (1.3-2.9) 03/15/21 04:55 [place] # (Auto) 0.6 x10^3/uL (0.3-0.8) 03/15/21 04:55 Eos # (Auto) 0.2 x10^3/uL (0.0-0.2) 03/15/21 04:55 Baso # (Auto) 0.1 X10^3/uL (0.0-0.1) 03/15/21 04:55 Absolute Nucleated RBC 0.1 /100WBC 03/15/21 04:55 Total Counted 100 03/15/21 04:55 Neutrophils % (Manual) 75 % (39-76) 03/15/21 04:55 Band Neutrophils % 1 % (0-10) 03/15/21 04:55 Lymphocytes % (Manual) 15 % (13-43) 03/15/21 04:55 Monocytes % (Manual) 5 % (4-9) 03/15/21 04:55 Eosinophils % (Manual) 4 % (0-6) 03/15/21 04:55 Plt Morphology Comment Normal (NORMAL) 03/15/21 04:55 RBC Morphology Abnormal (NORMAL) A 03/15/21 04:55 Dimorphic RBCs 2+ 03/14/21 04:20 Hypochromasia 3+ A 03/15/21 04:55 Poikilocytosis Slight A 03/11/21 15:40 Anisocytosis 3+ A 03/15/21 04:55 Microcytosis 1+ A 03/15/21 04:55 Macrocytosis 1+ A 03/13/21 04:15 Tear Drop Cells Slight A 03/11/21 15:40 Ovalocytes Slight A 03/11/21 15:40 Sodium 146 mmol/L (136-145) H 03/15/21 04:55 Corrected Sodium TNP 03/15/21 04:55 Potassium 3.7 mmol/L (3.5-5.1) 03/15/21 04:55 Chloride 109 mmol/L (98-107) H 03/15/21 04:55 Carbon Dioxide 28.4 mmol/L (21-32) 03/15/21 04:55 BUN 3 mg/dL (7-18) L 03/15/21 04:55 Creatinine 0.52 mg/dL (0.55-1.02) L 03/15/21 04:55 Est GFR (MDRD) Af Amer > 60 (>60) 03/15/21 04:55 Est GFR (MDRD) Non-Af > 60 (>60) 03/15/21 04:55 Glucose 75 mg/dL (65-99) 03/15/21 04:55 Calcium 8.6 mg/dL (8.5-10.1) 03/15/21 04:55 Corrected Calcium 9.6 mg/dL (8.5-10.1) 03/15/21 04:55 Iron 25 ug/dL (50-175) L 03/12/21 02:41 Transferrin 280 mg/dL (202-364) 03/12/21 02:41 Ferritin 7 ng/mL (8-252) L 03/12/21 02:41 Total Bilirubin 0.20 mg/dL (0.2-1.0) 03/15/21 04:55 AST 39 Units/L (15-37) H 03/15/21 04:55 ALT 30 Units/L (12-78) 03/15/21 04:55 Alkaline Phosphatase 182 Units/L (46-116) H 03/15/21 04:55 Total Protein 6.2 g/dL (6.4-8.2) L 03/15/21 04:55 Albumin 2.8 g/dL (3.4-5.0) L 03/15/21 04:55 Globulin 3.4 g/dL (2.5-4.5) 03/15/21 04:55 Albumin/Globulin Ratio 0.8 Ratio (1.1-2.1) L 03/15/21 04:55 Vitamin B12 803 pg/mL (193-986) 03/12/21 02:41 Folate 3.2 ng/mL (>8.6) L 03/12/21 02:41 Stool Description 100g solid brown 03/13/21 00:49 Stl Occult Blood (IFOB) Positive (NEGATIVE) A 03/13/21 00:49 Urine Opiates Screen Negative (NEG=<300) 03/13/21 17:05 Urine Methadone Screen Negative (NEG=<300) 03/13/21 17:05 Ur Barbiturates Screen Negative (NEG=<200) 03/13/21 17:05 Ur Phencyclidine Scrn Negative (NEG=<25) 03/13/21 17:05 Ur Amphetamines Screen Negative (NEG=<1000) 03/13/21 17:05 U Benzodiazepines Scrn Negative (NEG=<200) 03/13/21 17:05 Urine Cocaine Screen Negative (NEG=<300) 03/13/21 17:05 U Marijuana (THC) Screen Negative (NEG=<50) 03/13/21 17:05 SARS CoV-2 RNA Rapid ROLANDO Negative (NEGATIVE) 03/11/21 16:56 Tissue Pathology To follow 03/15/21 13:47 Blood Type O POSITIVE 03/11/21 15:40 Antibody Screen Negative 03/11/21 15:40 Crossmatch See Detail 03/11/21 15:40 - Plan (1) Symptomatic anemia Status: Acute Plan: NORMAL SALINE AT 125 ML/HR, PEPCID 20MG IV Q12H, PROTONIX 40MG IV BID, HEMOCYTE PLUS 1 TABLET PO DAILY, NICOTINE PATCH DAILY. COLONOSCOPY/EGD TODAY
[2021-03-15] MEDS: NULYTELY or GO-LYTELY PO SCH (18:34)
[2021-03-16] MEDS: NS 1000 ML 1,000 ML IV SCH ×4 (02:57→16:59)
[2021-03-16 06:00] LABS: BASOPHILS # (AUTO) 0.1 X10^3/uL (0.0-0.1); BASOPHILS % (AUTO) 1.2 % (0.2-1.0); EOSINOPHILS # (AUTO) 0.2 x10^3/uL (0.0-0.2); HEMATOCRIT 25.6 % (36.0-47.0); HEMOGLOBIN 8.1 g/dL (12.0-16.0); MEAN CORPUSCULAR HEMOGLOBIN 22.9 pg (27.0-34.0); MEAN CORPUSCULAR HGB CONC 31.6 g/dL (33.0-35.0); MEAN CORPUSCULAR VOLUME 72.4 fL (80.0-100.0); MEAN PLATELET VOLUME 8.8 fL (7.4-11.0); MONOCYTES # (AUTO) 0.6 x10^3/uL (0.3-0.8); MONOCYTES % (AUTO) 8.1 % (0.0-13.0); NEUTROPHILS # (AUTO) 4.6 x10^3/uL (2.2-4.8); NEUTROPHILS % (AUTO) 61.7 % (42.0-75.0); PLATELET COUNT 277 X10^3/uL (150.0-450.0); RED BLOOD COUNT 3.53 X10^6/uL (3.5-5.4); RED CELL DISTRIBUTION WIDTH 30.9 % (11.6-16.5); WHITE BLOOD COUNT 7.5 X10^3/uL (3.6-10.0)
[2021-03-16 06:39] LABS: ANISOCYTOSIS 3+; PLATELET MORPHOLOGY COMMENT NORMAL (NORMAL)
[2021-03-16 06:40] LABS: HYPOCHROMASIA 2+; POIKILOCYTOSIS SLIGHT
[2021-03-16 06:41] LABS: ALANINE AMINOTRANSFERASE 24 Units/L (12-78); ALBUMIN 2.7 g/dL (3.4-5.0); ALKALINE PHOSPHATASE 168 Units/L (46-116); ASPARTATE AMINO TRANSFERASE 27 Units/L (15-37); BLOOD UREA NITROGEN 2 mg/dL (7-18); CALCIUM 8.9 mg/dL (8.5-10.1); CARBON DIOXIDE 30.4 mmol/L (21-32); CHLORIDE 108 mmol/L (98-107); COR CA(FOR HYPOALB) 9.9 mg/dL (8.5-10.1); CREATININE 0.49 mg/dL (0.55-1.02); SODIUM 147 mmol/L (136-145); eGFR NON BLACK RACES > 60 (>60)
[2021-03-16] MEDS: NICOTINE PATCH TD SCH (09:57)
[2021-03-16] MEDS: PEPCID 20 MG IV PREMIX* 20 MG/50 ML BAG IV SCH (10:00)
[2021-03-16] MEDS: PROTONIX INJ 40 MG VIAL IVP SCH (10:00)
[2021-03-16] MEDS: BUSPAR PO SCH (10:39)
[2021-03-16] MEDS: HEMOCYTE-PLUS PO SCH (10:39)
[2021-03-16] MEDS ORDERED: DIPRIVAN VIAL 40 ML ONE (14:07)
[2021-03-16] MEDS ORDERED: XYLOCAINE 2 % (PLAIN) ONE (14:07)
[2021-03-16] MEDS ORDERED: DIPRIVAN VIAL 20 ML ONE (14:34)
[2021-03-16] MEDS ORDERED: NS 100 ML IV 100 ML ONE (17:01)
--- NOTE | 2021-03-16 18:09 | CT ---
ABDOMEN/PELVIS WITH CONHISTORY: GI BLEED, ANEMIAComparison:NoneTechnique:Multiple axial images of the abdomen and pelvis were obtained from the lung bases to the pubic symphysis following the administration of IV contrast as well as oral contrast . Dose reduction techniques including Automated Exposure Control (AEC) and adjustment of mA and kV were utlized.Findings:The heart is normal in size. There is no pericardial effusion. Lung bases are clear without focal consolidation, pleural effusion or pneumothorax.Liver is unremarkable. Spleen mildly enlarged. No focal lesions. The portal vein is patent. No ductal dilitation. Gallbladder is present. No calcified gallstones or gallbladder wall thickening. The pancreas is unremarkable. Adrenal glands are normal. Kidneys enhance symmetrically without hydronephrosis or nephrolithiasis.No bowel obstruction or inflammation. Normal appendix. No abnormal appearing mesenteric or retroperitoneal lymph nodes. . No free fluid or fluid collections.The bladder is normal in appearance. Uterus present. 3.9 cm structure in the right adnexa that is primarily cystic but possibly has some layering high attenuation debris. No free fluid or abnormal pelvic lymph nodes.No aggressive osseous lesions.IMPRESSION:1. No source of GI bleed or anemia identified on this examination.2. Cystic structure in the right adnexa may represent a mildly complex ovarian cyst versus hemorrhagic ovarian cyst with retracting clot. This could be further evaluated by ultrasound on a nonemergent basis.Electronically signed by: ARI LO (Mar 16, 2021 18:08:08)
[2021-03-16 18:12] VITALS: BP 143/62
== END 2021-03-16 18:20 | disposition home or self-care (01) | DRG 812 ==
LOC: ER 14:43 → ICU 16:55
PROVIDERS: ADMIT Internal Medicine; ATTEND Internal Medicine
DX: D64.89 Other specified anemias; D12.8 Benign neoplasm of rectum; Z20.822 Contact with and (suspected) exposure to COVID-19; K29.60 Other gastritis without bleeding; K20.80 Other esophagitis without bleeding; K92.2 Gastrointestinal hemorrhage, unspecified